=== PATIENT | female | born 1985 ===

== ENCOUNTER 2018-06-08 09:27 | Emergency (ER) | payer OTHER ==
[2018-06-08 09:30] VITALS: BMI 34.7
[2018-06-08 09:31] VITALS: BP 132/90; PULSE 80; RESP 18; TEMP 99.5; O2SAT 100
--- NOTE | 2018-06-08 10:17 | C.PDOC ---
History Of Present Illness 32 year old female presents to the emergency department with complaints of a urinary tract infection. Patient states that two days ago she had brown urine, and subsequently purchased a testing kit from the pharmacy which resulted positive. She denies any other medical problems and states that she is currently on her period. She denies nausea, vomiting, and pain upon urination. Time Seen by Provider: 06/08/18 09:41 Chief Complaint (Nursing): Female Genitourinary History Per: Patient History/Exam Limitations: no limitations Onset/Duration Of Symptoms: Days (2) Current Symptoms Are (Timing): Still Present Quality Of Discomfort: denies: "Pain" Associated Symptoms: Urinary Symptoms. denies: Fever, Chills Last Menstral Period: Now Past Medical History Reviewed: Historical Data, Nursing Documentation, Vital Signs Vital Signs: Last Vital Signs Temp 99.5 F 06/08/18 09:30 Pulse 80 06/08/18 09:30 Resp 18 06/08/18 09:30 BP 132/90 06/08/18 09:30 Pulse Ox 100 06/08/18 09:30 - Medical History PMH: No Chronic Diseases Surgical History: [facility]ole[facility], (x2) [facility] EXTRACTION OF POC, LOW CERVICAL, OPEN APPROACH (07/31/16) INJECT/INFUSE NEC (06/27/13) LAPAROSCOPIC CHOLECYSTECTOMY (03/06/13) MONITORING OF POC, CARDIAC RATE, SLIPPER MAKER APPROACH (07/31/16) OTH LYSIS-PERITONEAL ADHES (01/20/14) Family History: States: No Known Family Hx - Social History Hx Tobacco Use: No Hx Alcohol Use: No Hx Substance Use: No - Immunization History Hx Tetanus Toxoid Vaccination: No Hx Influenza Vaccination: No Hx Pneumococcal Vaccination: No Review Of Systems Constitutional: Negative for: Fever Gastrointestinal: Negative for: Nausea, Vomiting, Abdominal Pain, Diarrhea Genitourinary: Positive for: Other (brown urine). Negative for: Dysuria Physical Exam - Physical Exam Appears: Non-toxic, No Acute Distress Skin: Warm, Dry Head: Atraumatic, Normacephalic Eye(s): bilateral: Normal Inspection Oral Mucosa: Moist Neck: Normal, Supple Chest: Symmetrical, No Tenderness Cardiovascular: Rhythm Regular, No Murmur Respiratory: Normal Breath Sounds, No Rales, No Rhonchi, No Wheezing Gastrointestinal/Abdominal: Soft, No Tenderness, No Guarding, No Rebound Back: No CVA Tenderness Extremity: Normal ROM Neurological/Psych: Oriented x3, Normal Speech, Normal Cognition ED Course And Treatment O2 Sat by Pulse Oximetry: 100 (RA) Pulse Ox Interpretation: Normal Progress Note: Plan: Urine Culture. POC Urine. Urinalysis Medical Decision Making Medical Decision Making: pt with +uti, will d/c with bactrim. Disposition Counseled Patient/Family Regarding: Studies Performed, Diagnosis, Need For Followup, Rx Given - Disposition Referrals: [facility] [Outside] Disposition: HOME/ ROUTINE Disposition Time: 11:01 Condition: GOOD Additional Instructions: Please drink increased water and cranberry juice. Take antibiotics as prescribed. Follow up in medical clinic. 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 - Scribe Statement The provider has reviewed the documentation as recorded by the Scribe (Chinedu Miller) All medical record entries made by the Scribe were at my direction and personally dictated by me. I have reviewed the chart and agree that the record accurately reflects my personal performance of the history, physical exam, medical decision making, and the department course for this patient. I have also personally directed, reviewed, and agree with the discharge instructions and disposition.
[2018-06-08 10:24] LABS: SQUAMOUS EPITHIAL 1 /hpf (0-5); URINE BACTERIA RARE (<OCC); URINE BILIRUBIN NEGATIVE (NEGATIVE); URINE BLOOD 3+ (NEGATIVE); URINE CLARITY Hazy (Clear); URINE COLOR Yellow (YELLOW); URINE GLUCOSE (UA) NORMAL (Normal); URINE LEUKOCYTE ESTERASE 2+ Leu/uL (Negative); URINE PROTEIN NEGATIVE (NEGATIVE); URINE UROBILINOGEN NORMAL mg/dL (0.2-1.0)
== END 2018-06-08 11:14 | disposition home or self-care (01) ==
LOC: C.ER 09:27
DX: N39.0 Urinary tract infection, site not specified (principal)